=== PATIENT | male | born 1985 | race Caucasian/White ===

== ENCOUNTER 2021-01-28 13:13 | Outpatient (CLI) | payer OTHER, SELFPAY ==
--- NOTE | ~2021-01-28 | CT_ITS ---
EXAMINATION: CT chest high resolution wo fl DATE: 01/28/2021 13:51 INDICATION: Chronic shortness of breath TECHNIQUE: Computed tomography (CT) of the chest was performed without intravenous contrast. The dose -length product was 229.24 mGy-cm. Automated exposure control and iterative reconstruction technique were employed. COMPARISON: CT dated 12/28/2020 FINDINGS: No thoracic lymphadenopathy. No significant pleural or pericardial effusion. Fatty infiltra tion of the liver. Heart size is normal. No evidence for aortic aneurysm. There is left lower lobe at electasis. Calcified granuloma right upper lobe. No endobronchial lesions. No pneumothorax. No suspic ious pulmonary nodules or masses. No significant osseous abnormality. IMPRESSION: 1. Left lower lobe atelectasis. 2: Hepatic steatosis. Reviewed, dictated and finalized at location A.
[2021-01-28 15:13] LABS: Rheumatoid Factor < 8.6 IU/ML (<12)
[2021-01-30 21:04] LABS: Anti Cyclic Citrullinated Pept <16 Units (<20)
[2021-01-30 22:45] LABS: NIL 0.03 IU/mL; Quantiferon TB Plus, 1T NEGATIVE (NEGATIVE); TB1-NIL 0.07 IU/mL; TB2-NIL 0.06 IU/mL
[2021-01-31 21:24] LABS: ANA Cascade Screen Negative (Negative)
[2021-02-05 22:00] LABS: Myeloperoxidase Antibody <1.0 AI (<1.0); Proteinase 3 PR3 Antibodies <1.0 AI (<1.0)
== END 2021-01-28 13:14 | disposition home or self-care (01) ==
PROVIDERS: Visit Provider Internal Medicine Pulmonary Disease
DX: R91.8 Other nonspecific abnormal finding of lung field (principal); K76.0 Fatty (change of) liver, not elsewhere classified
CPT/HCPCS: 36415; 71250; 86021; 86038; 86200; 86331; 86430; 86480; 86606; 86609

== ENCOUNTER 2021-02-14 10:02 | Outpatient (CLI) | payer OTHER, SELFPAY ==
--- NOTE | 2021-02-14 12:06 | WPDPFTINT ---
PFT Procedure Performed PFT Procedure Performed Spirometry with Pre/Post Bronchodilator Plethysmography (Lung Vol) Diffusing Cap (DLCO) Flow Vol Loop PFT Interpretation This is a pulmonary function test with pre and post-bronchodilator spirometry, plethysmography and diffusing capacity. The test was performed and results interpreted in accordance with the 2019 and 2005 ATS/ERS Task Force guidelines respectively using the Global Lung Function Initiative-2012 reference equations. Patient demonstrated good effort and cooperation. Reproducibility criteria were met. The quality of the pre bronchodilator spirometry maneuver was Grade C and post bronchodilator spirometry maneuver was Grade C. Findings: Spirometry: The contour the inspiratory and expiratory flow tracing are normal. The pre bronchodilator FVC is 3.52 L, 65% predicted. The pre bronchodilator FEV1 is 2.90 L, 66% predicted. The FEV1: FVC ratio was 82%. The post bronchodilator FVC is 3.84 L, representing a 9% increase. The post bronchodilator FEV1 is 2.97 L, representing a 2% increase. Plethysmography: The total lung capacity is 4.90 L, 71% predicted. The functional residual capacity is 1.81 L, 53% predicted. The residual volume is 1.38 L, 81% predicted. Diffusing capacity: The absolute diffusion capacity is 26.4, 77% predicted. The diffusing capacity corrected for alveolar volume is 5.65, 112% predicted. Impression: There is a moderate restrictive ventilatory abnormality. The spirometry is normal without evidence of an obstructive abnormality. There is no significant improvement after inhaling a single dose of albuterol. The diffusing capacity is normal. There are no prior studies for comparison
== END 2021-02-14 10:03 | disposition home or self-care (01) ==
LOC: ANHPFT 10:04
PROVIDERS: Visit Provider Internal Medicine Pulmonary Disease
DX: R06.00 Dyspnea, unspecified (principal); R94.2 Abnormal results of pulmonary function studies
CPT/HCPCS: 94060; 94726; 94729